=== PATIENT | male | born 1990 | race Caucasian/White ===

== ENCOUNTER 2016-04-25 16:52 | Emergency (ER) | payer OTHER ==
--- NOTE | 2016-04-25 17:39 | EDDOCDS ---
Nurse's Notes [facility] Name: Aniceto Stratton Age: 25 yrs Sex: Male : 1990 Arrival Date: 04/25/2016 Time: 16:52 Bed TR7 Private MD: No Pcp Diagnosis: Acute serous otitis media, right ear;Acute pharyngitis;Dental caries-Tooth Fracture, Right side, upper and lower Presentation: 04/25 17:02 Presenting complaint: Patient states: states sore throat and right jaw pain x 1 year, ml6 states "I think it's cancer". Risk factors: Stridor is not present. Drooling is not present. Shortness of breath is not present. Cellulitis is not present. Adult Sepsis Screening: The patient does not have new or worsening altered mentation. Patient's respiratory rate is less than 22. Systolic blood pressure is greater than 100. Patient has a qSOFA score of 0- Negative Sepsis Screen. Suicide/Homicide risk assessment- the patient denies having any suicidal and/or homicidal ideations and does not present with any other emotional, behavioral or mental health complaints. 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 Transition of care: patient was not received from another setting of care. 17:02 Acuity: LIZETH Level 5 ml6 17:02 Method Of Arrival: Walkin/Carried/Asstd ml6 Triage Assessment: 17:04 General: Appears in no apparent distress, Behavior is appropriate for age, cooperative. ml6 Pain: Location: mouth and neck Pain currently is 5 out of 10 on a pain scale. Pain does not radiate. Quality of pain is described as aching, Pain began years ago. Is continuous Alleviated by nothing. Aggravated by eating, drinking. HIV screening NA for this visit Offered previously. EENT: Throat is clear. Cardiovascular: No deficits noted. Historical: - Allergies: no known allergies; - Home Meds: 1. none - PMHx: none; - PSHx: none; - Social history: Smoking status: Chewing Tobacco No barriers to communication noted, Speaks appropriately for age. - Family history: Not pertinent. - : The pt / caregiver states he / she is not on anticoagulants. Home medication list is obtained from the patient. - Exposure Risk Screening:: None identified. Screenin:17 Screening information is obtained from the patient. Fall risk: No risks identified. js13 Assistance ADL's: requires no assistance with activities of daily living. Abuse/DV Screen: The patient / caregiver reports he/she is: not in a situation that causes fear, pain or injury. Nutritional screening: No deficits noted. Advance Directives: There is no active DNR order. home support is adequate. Assessment: 17:36 Respiratory: Airway is patent. js13 Vital Signs: 16:53 BP 183 / 90; Pulse 111; Resp 18; Temp 97.4(T); Pulse Ox 99% on R/A; Weight 72.57 kg dem1 (R); Height 5 ft. 7 in. (170.18 cm) (R); Pain 7/10; 17:33 BP 147 / 82; Temp 99.0(O); ar3 16:53 Body Mass Index 25.06 (72.57 kg, 170.18 cm) dem1 Vitals: 16:53 Log In Time: April 25, 2016 at 16:45. dem1 17:17 Strep Screen is obtained and tested: Negative, a GATSNEG culture is ordered in [facility] and sent. ED Course: 16:53 Patient visited by Aisha Baldwin. dem1 16:53 No Pcp is Private Physician. dem1 16:53 Patient moved to Waiting dem1 16:54 Patient visited by Aisha Baldwin. dem1 16:54 Patient moved to Pre RCE dem1 17:03 Triage Initiated ml6 17:04 Patient moved to Triage 1 ml6 17:17 The patient / caregiver is instructed regarding the plan of care and ED course. js13 17:17 No IV's were initiated during this patient's visit. No procedures done that require [facility] assistance. 17:18 Nah[facility] Damian [facility]C [facility]. ef1 17:18 Massiel Linda MD is Attending Physician. ef1 17:18 Patient visited by Nahomy Damian PA-C. ef1 17:22 GATS (NEGATIVE STREP SCREEN) Sent. ar3 17:34 Patient visited by Evette Mireles PCA. ar3 17:35 [facility] is Referral Physician. ef1 17:35 Your, Dentist is Referral Physician. ef1 17:38 Patient moved to TR7 ar3 Order Results: There are currently no results for this order. Outcome: 17:35 Discharge ordered by Provider. ef1 17:35 Discharge Assessment: Patient awake, alert and oriented x 3. No cognitive and/or js13 functional deficits noted. Patient verbalized understanding of disposition instructions. patient administered narcotics - no. The following High Risk Discharge criteria are identified: None. Discharged to home ambulatory. Condition: stable. No special radiology studies were completed. Property :Personal belongings accompany Pt. 17:36 Discharge instructions given to patient, Instructed on discharge instructions, follow js13 up and referral plans. medication usage, Demonstrated understanding of instructions, medications, Pt was receptive of discharge instructions/ teaching. Prescriptions given X 3. 17:38 Patient left the ED. js13 Signatures: Nahomy Damian, PAPaulaC PAPaulaC ef1 Shaheed Baltazar, RN RN ml6 Evette Mireles, COOK RAILROAD COOK RAILROAD ar3 Aisha Baldwin1 Marguerite Nuñez,RN RN js13 Corrections: (The following items were deleted from the chart) 17:03 17:02 Presenting complaint: Patient states: states sore throat and right jaw pain x 1 ml6 year ml6 MTDD
--- NOTE | 2016-04-25 17:39 | EDDOCDS ---
Physician Documentation [facility] Name: Aniceto Stratton Age: 25 yrs Sex: Male : 1990 Arrival Date: 04/25/2016 Time: 16:52 Bed TR7 Private MD: No Pcp Disposition: 04/25/16 17:35 Discharged to Home/Self Care. Impression: Acute serous otitis media, right ear, Acute pharyngitis, Dental caries - Tooth Fracture, Right side, upper and lower. - Condition is Stable. - Discharge Instructions: Dental Fracture, Otitis Media, Adult, Zgle-go-Hvne. - Prescriptions for Amoxicillin 875 mg Oral Tablet - take 1 tablet by ORAL route every 12 hours for 10 days; 20 tablet. Ibuprofen 800 mg Oral Tablet - take 1 tablet by ORAL route every 8 hours As needed take with food; 30 tablet. Mucinex 600 mg - take 1 tablet by ORAL route 2 times per day; 30 tablet. - Referral List Call for Appointment, Dental Referral List, Medication Reconciliation, Local Pharmacy Hours form. - [facility]: [facility] ; When: 1 - 2 days; Reason: Recheck today's complaints, Continuance of care. Follow up: Emergency Department; Reason: Worsening of conditions. Follow up: Dentist Your; When: 1 - 2 days; Reason: Further diagnostic work-up, Recheck today's complaints, Continuance of care. - Problem is new. - Symptoms are unchanged. Historical: - Allergies: no known allergies; - Home Meds: 1. none - PMHx: none; - PSHx: none; - Social history: Smoking status: Chewing Tobacco No barriers to communication noted, Speaks appropriately for age. - Family history: Not pertinent. - : The pt / caregiver states he / she is not on anticoagulants. Home medication list is obtained from the patient. - Exposure Risk Screening:: None identified. Vital Signs: 04/25 16:53 BP 183 / 90; Pulse 111; Resp 18; Temp 97.4(T); Pulse Ox 99% on R/A; Weight 72.57 kg / dem1 159.99 lbs (R); Height 5 ft. 7 in. (170.18 cm) (R); Pain 7/10; 17:33 BP 147 / 82; Temp 99.0(O); ar3 16:53 Body Mass Index 25.06 (72.57 kg, 170.18 cm) dem1 MDM: 17:16 Strep Screen, Nursing ordered. js13 17:17 GATS (NEGATIVE STREP SCREEN) Ordered. EDMS 17:23 Misc. Nursing Order ordered. ef1 Signatures: Dispatcher MedHost Nahomy Dueñas, AQUILINO ROLLE ef1 Shaheed Baltazar, RN RN ml6 Marguerite NuñezRN RN js13 MTDD
--- NOTE | 2016-04-27 18:39 | EDDOCDS ---
Physician Documentation [facility] Name: Aniceto Stratton Age: 25 yrs Sex: Male : 1990 Arrival Date: 04/25/2016 Time: 16:52 Bed TR7 Private MD: No Pcp Disposition: 04/25/16 17:35 Discharged to Home/Self Care. Impression: Acute serous otitis media, right ear, Acute pharyngitis, Dental caries - Tooth Fracture, Right side, upper and lower. - Condition is Stable. - Discharge Instructions: Dental Fracture, Otitis Media, Adult, [id number]. - Prescriptions for Amoxicillin 875 mg Oral Tablet - take 1 tablet by ORAL route every 12 hours for 10 days; 20 tablet. Ibuprofen 800 mg Oral Tablet - take 1 tablet by ORAL route every 8 hours As needed take with food; 30 tablet. Mucinex 600 mg - take 1 tablet by ORAL route 2 times per day; 30 tablet. - Referral List Call for Appointment, Dental Referral List, Medication Reconciliation, Local Pharmacy Hours form. - Follow up: [facility] ; When: 1 - 2 days; Reason: Recheck today's complaints, Continuance of care. Follow up: Emergency Department; Reason: Worsening of conditions. Follow up: Dentist Your; When: 1 - 2 days; Reason: Further diagnostic work-up, Recheck today's complaints, Continuance of care. - Problem is new. - Symptoms are unchanged. Historical: - Allergies: no known allergies; - Home Meds: 1. none - PMHx: none; - PSHx: none; - Social history: Smoking status: Chewing Tobacco No barriers to communication noted, Speaks appropriately for age. - Family history: Not pertinent. - : The pt / caregiver states he / she is not on anticoagulants. Home medication list is obtained from the patient. - Exposure Risk Screening:: None identified. Vital Signs: 04/25 16:53 BP 183 / 90; Pulse 111; Resp 18; Temp 97.4(T); Pulse Ox 99% on R/A; Weight 72.57 kg / dem1 159.99 lbs (R); Height 5 ft. 7 in. (170.18 cm) (R); Pain 7/10; 17:33 BP 147 / 82; Temp 99.0(O); ar3 16:53 Body Mass Index 25.06 (72.57 kg, 170.18 cm) dem1 MDM: 17:16 Strep Screen, Nursing ordered. js13 17:17 GATS (NEGATIVE STREP SCREEN) Ordered. EDMS 17:23 Misc. Nursing Order ordered. ef1 18:00 [facility] Payment Agreement was scanned into MEDDigital Ally and attached to record. gjb 18:00 Financial registration complete. gjb 04/26 11:59 T-Sheet-- Draft Copy was scanned into [employer] and attached to record. gb Signatures: Dispatcher MedHost EDMS Aurora Cervantes, Reg Reg gb Nahomy Damian, PA-C PAPaulaC ef1 Shaheed Baltazar, RN RN ml6 Marguerite NuñezRN RN js13 Dana Carter The chart was reviewed and I authenticate all verbal orders and agree with the evaluation and treatment provided.Attachments: 04/25 18:00 [place] [place] gjb 04/26 11:59 T-Sheet-- Draft Copy gb Chart Complete MTDD
--- NOTE | 2016-04-27 18:39 | EDDOCDS ---
Nurse's Notes [facility] Name: Aniceto Stratton Age: 25 yrs Sex: Male : 1990 Arrival Date: 04/25/2016 Time: 16:52 Bed TR7 Private MD: No Pcp Diagnosis: Acute serous otitis media, right ear;Acute pharyngitis;Dental caries-Tooth Fracture, Right side, upper and lower Presentation: 04/25 17:02 Presenting complaint: Patient states: states sore throat and right jaw pain x 1 year, ml6 states "I think it's cancer". Risk factors: Stridor is not present. Drooling is not present. Shortness of breath is not present. Cellulitis is not present. Adult Sepsis Screening: The patient does not have new or worsening altered mentation. Patient's respiratory rate is less than 22. Systolic blood pressure is greater than 100. Patient has a qSOFA score of 0- Negative Sepsis Screen. Suicide/Homicide risk assessment- the patient denies having any suicidal and/or homicidal ideations and does not present with any other emotional, behavioral or mental health complaints. 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 Transition of care: patient was not received from another setting of care. 17:02 Acuity: LIZETH Level 5 ml6 17:02 Method Of Arrival: Walkin/Carried/Asstd ml6 Triage Assessment: 17:04 General: Appears in no apparent distress, Behavior is appropriate for age, cooperative. ml6 Pain: Location: mouth and neck Pain currently is 5 out of 10 on a pain scale. Pain does not radiate. Quality of pain is described as aching, Pain began years ago. Is continuous Alleviated by nothing. Aggravated by eating, drinking. HIV screening NA for this visit Offered previously. EENT: Throat is clear. Cardiovascular: No deficits noted. Historical: - Allergies: no known allergies; - Home Meds: 1. none - PMHx: none; - PSHx: none; - Social history: Smoking status: Chewing Tobacco No barriers to communication noted, Speaks appropriately for age. - Family history: Not pertinent. - : The pt / caregiver states he / she is not on anticoagulants. Home medication list is obtained from the patient. - Exposure Risk Screening:: None identified. Screenin:17 Screening information is obtained from the patient. Fall risk: No risks identified. js13 Assistance ADL's: requires no assistance with activities of daily living. Abuse/DV Screen: The patient / caregiver reports he/she is: not in a situation that causes fear, pain or injury. Nutritional screening: No deficits noted. Advance Directives: There is no active DNR order. home support is adequate. Assessment: 17:36 Respiratory: Airway is patent. js13 Vital Signs: 16:53 BP 183 / 90; Pulse 111; Resp 18; Temp 97.4(T); Pulse Ox 99% on R/A; Weight 72.57 kg dem1 (R); Height 5 ft. 7 in. (170.18 cm) (R); Pain 7/10; 17:33 BP 147 / 82; Temp 99.0(O); ar3 16:53 Body Mass Index 25.06 (72.57 kg, 170.18 cm) dem1 Vitals: 16:53 Log In Time: April 25, 2016 at 16:45. dem1 17:17 Strep Screen is obtained and tested: Negative, a GATSNEG culture is ordered in [place] [address] and sent. ED Course: 16:53 Patient visited by Aisha Baldwin. dem1 16:53 No Pcp is Private Physician. dem1 16:53 Patient moved to Waiting dem1 16:54 Patient visited by Aisha Baldwin. dem1 16:54 Patient moved to Pre RCE dem1 17:03 Triage Initiated ml6 17:04 Patient moved to Triage 1 ml6 17:17 The patient / caregiver is instructed regarding the plan of care and ED course. js13 17:17 No IV's were initiated during this patient's visit. No procedures done that require [facility] assistance. 17:18 Nahomy Damian [facility]-C [facility]. ef1 17:18 Massiel Linda MD is Attending Physician. ef1 17:18 Patient visited by Nahomy Damian PA-C. ef1 17:22 GATS (NEGATIVE STREP SCREEN) Sent. ar3 17:34 Patient visited by Evette Mireles PCA. ar3 17:35 [facility] is Referral Physician. ef1 17:35 Your, Dentist is Referral Physician. ef1 17:38 Patient moved to [facility] ar3 18:[facility] Payment Agreement was scanned into V[employer]et and attached to record. gjb 04/26 11:59 T-Sheet-- Draft Copy was scanned into V[employer]et and attached to record. gb Order Results: Lab Order: GATS (NEGATIVE STREP SCREEN); SPEC'M 04/25/16 17:23 Test: GATS CULTURE (NEG STREP SCR); Value: GATS RESULT POSITIVE FOR STREP PYOGENES (GROUP A); Abnormal: Abnormal; Status: F Test: GATS CULTURE (NEG STREP SCR); Value: <EXTERNAL COMMENT eCWMed> FULL REPORT IN LAB NOTES (eCW and Medent).; Status: F Test: GATS CULTURE (NEG STREP SCR); Value: ORGANISM 1: STREPTOCOCCUS PYOGENES GRP A; Status: F Test: GATS CULTURE (NEG STREP SCR); Value: STREPTOCOCCUS PYOGENES GRP A; Status: F Test: GATS CULTURE (NEG STREP SCR); Value: QUANTITY OF GROWTH FEW; Status: F Outcome: 04/25 17:35 Discharge ordered by Provider. ef1 17:35 Discharge Assessment: Patient awake, alert and oriented x 3. No cognitive and/or js13 functional deficits noted. Patient verbalized understanding of disposition instructions. patient administered narcotics - no. The following High Risk Discharge criteria are identified: None. Discharged to home ambulatory. Condition: stable. No special radiology studies were completed. Property :Personal belongings accompany Pt. 17:36 Discharge instructions given to patient, Instructed on discharge instructions, follow js13 up and referral plans. medication usage, Demonstrated understanding of instructions, medications, Pt was receptive of discharge instructions/ teaching. Prescriptions given X 3. 17:38 Patient left the ED. js13 04/27 12:10 GATS reviewed, pt treated appropriately.:. [facility] Signatures: Nicole Coleman, RN RN j Aurora Cervantes, Reg Reg gb Feola, Nahomy, PA-C PA-C ef1 Shaheed Baltazar, RN RN ml6 Evette Mireles, CLEAN RICE BROKER CLEAN RICE BROKER ar3 Aisha Baldwin1 Marguerite Nuñez RN RN js13 Dana Carter Corrections: (The following items were deleted from the chart) 04/25 17:03 17:02 Presenting complaint: Patient states: states sore throat and right jaw pain x 1 ml6 year ml6 Chart Complete MTDD
--- NOTE | 2016-04-27 18:39 | EDDOCDS ---
Physician Documentation [facility] Name: Aniceto Stratton Age: 25 yrs Sex: Male : 1990 Arrival Date: 04/25/2016 Time: 16:52 Bed TR7 Private MD: No Pcp Disposition: 04/25/16 17:35 Discharged to Home/Self Care. Impression: Acute serous otitis media, right ear, Acute pharyngitis, Dental caries - Tooth Fracture, Right side, upper and lower. - Condition is Stable. - Discharge Instructions: Dental Fracture, Otitis Media, Adult, Yxkq-cq-[id number]. - Prescriptions for Amoxicillin 875 mg Oral Tablet - take 1 tablet by ORAL route every 12 hours for 10 days; 20 tablet. Ibuprofen 800 mg Oral Tablet - take 1 tablet by ORAL route every 8 hours As needed take with food; 30 tablet. Mucinex 600 mg - take 1 tablet by ORAL route 2 times per day; 30 tablet. - Referral List Call for Appointment, Dental Referral List, Medication Reconciliation, Local Pharmacy Hours form. - Follow up: [facility] ; When: 1 - 2 days; Reason: Recheck today's complaints, Continuance of care. Follow up: Emergency Department; Reason: Worsening of conditions. Follow up: Dentist Your; When: 1 - 2 days; Reason: Further diagnostic work-up, Recheck today's complaints, Continuance of care. - Problem is new. - Symptoms are unchanged. Historical: - Allergies: no known allergies; - Home Meds: 1. none - PMHx: none; - PSHx: none; - Social history: Smoking status: Chewing Tobacco No barriers to communication noted, Speaks appropriately for age. - Family history: Not pertinent. - : The pt / caregiver states he / she is not on anticoagulants. Home medication list is obtained from the patient. - Exposure Risk Screening:: None identified. Vital Signs: 04/25 16:53 BP 183 / 90; Pulse 111; Resp 18; Temp 97.4(T); Pulse Ox 99% on R/A; Weight 72.57 kg / dem1 159.99 lbs (R); Height 5 ft. 7 in. (170.18 cm) (R); Pain 7/10; 17:33 BP 147 / 82; Temp 99.0(O); ar3 16:53 Body Mass Index 25.06 (72.57 kg, 170.18 cm) dem1 MDM: 17:16 Strep Screen, Nursing ordered. js13 17:17 GATS (NEGATIVE STREP SCREEN) Ordered. EDMS 17:23 Misc. Nursing Order ordered. ef1 18:00 [facility] Payment Agreement was scanned into MEDSample6 and attached to record. gjb 18:00 Financial registration complete. gjb 04/26 11:59 T-Sheet-- Draft Copy was scanned into SprayCool and attached to record. gb Signatures: Dispatcher MedHost EDMS Aurora Cervantes, Reg Reg gb Nahomy Damian, PA-C PAPaulaC ef1 Shaheed Baltazar, RN RN ml6 Marguerite NuñezRN RN js13 Dana Carter The chart was reviewed and I authenticate all verbal orders and agree with the evaluation and treatment provided.Attachments: 04/25 18:00 [facility] Payment Agreement gjb 04/26 11:59 T-Sheet-- Draft Copy gb Chart Complete MTDD
== END 2016-04-25 17:38 | disposition home or self-care (01) ==
LOC: M ED 16:52
DX: S02.5XXA Fracture of tooth (traumatic), initial encounter for closed fracture (principal); X58.XXXA Exposure to other specified factors, initial encounter; Y92.9 Unspecified place or not applicable; Y93.9 Activity, unspecified; Y99.9 Unspecified external cause status; K02.9 Dental caries, unspecified; H66.91 Otitis media, unspecified, right ear; J02.9 Acute pharyngitis, unspecified; F17.228 Nicotine dependence, chewing tobacco, with other nicotine-induced disorders

== ENCOUNTER 2016-08-15 20:42 | Emergency (ER) | payer OTHER ==
[~2016-08-15] VITALS: Ht 170.2 cm; Wt 77.1 kg
[2016-08-15 21:27] LABS: ANION GAP 5 MEQ/L (8-16); BLOOD UREA NITROGEN 13 MG/DL (7-18); CARBON DIOXIDE LEVEL 31 MEQ/L (21-32); CHLORIDE LEVEL 105 MEQ/L (98-107); CREATININE FOR GFR 0.89 MG/DL (0.70-1.30); GLOMERULAR FILTRATION RATE > 60.0 (>60); GLUCOSE, FASTING 69 MG/DL (70-105); MAGNESIUM LEVEL 2.3 MG/DL (1.8-2.4); SODIUM LEVEL 141 MEQ/L (136-145)
[2016-08-15 21:55] LABS: METHADONE URINE NEGATIVE (NEGATIVE)
[2016-08-15 22:05] VITALS: BP 155/87
--- NOTE | 2016-08-16 07:33 | ECGEPIP ---
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
== END 2016-08-15 22:14 | disposition home or self-care (01) ==
LOC: EDBD 20:42 → M ED 21:32
DX: F14.10 Cocaine abuse, uncomplicated (principal); F12.10 Cannabis abuse, uncomplicated; R00.1 Bradycardia, unspecified; K21.9 Gastro-esophageal reflux disease without esophagitis; J45.909 Unspecified asthma, uncomplicated

== ENCOUNTER 2016-08-30 22:38 | Emergency (ER) | payer OTHER ==
[~2016-08-30] VITALS: Ht 170.2 cm; Wt 68.6 kg
[2016-08-30] MEDS ORDERED: SUBO12MI SL (22:48)
[2016-08-31 00:18] VITALS: BP 145/84
--- NOTE | 2016-08-31 16:23 | ECGEPIP ---
Stationary ECG Study [facility] - ED Test Date: 2016-08-30 Pat Name: EVELIA JACK Department: Room: - Gender: M Federal Mediator: : 1990 Requested By: GARY Fernández Order Number: [id number] Reading MD: Soledad Melchor Measurements Intervals [place] Rate: 49 P: 74 [place]: 149 QRS: 71 QRSD: 105 T: 57 QT: 428 QTc: 388 Interpretive Statements SINUS BRADYCARDIA DECREASED RATE 08/15/16 Electronically Signed On 08-31-2016 16:23:36 EDT by Soledad Melchor
== END 2016-08-31 00:19 | disposition home or self-care (01) ==
LOC: M ED 23:43
DX: F41.9 Anxiety disorder, unspecified (principal); F32.9 Major depressive disorder, single episode, unspecified; J45.909 Unspecified asthma, uncomplicated; Z87.891 Personal history of nicotine dependence; Z79.891 Long term (current) use of opiate analgesic

== ENCOUNTER 2017-05-05 14:52 | Emergency (ER) | payer OTHER ==
[2017-05-05 15:33] LABS: HEMATOCRIT 40.6 % (42.0-52.0); HEMOGLOBIN 14.6 g/dl (14.0-18.0); MEAN CORPUSCULAR HEMOGLOBIN 30.9 pg (27.0-33.0); MEAN CORPUSCULAR VOLUME 85.8 fl (80.0-96.0); PLATELET COUNT, AUTOMATED 199 10^3/uL (150-450); RED BLOOD COUNT 4.73 10^6/uL (4.30-6.10); RED CELL DISTRIBUTION WIDTH 11.9 % (11.5-14.5); WHITE BLOOD COUNT 13.8 10^3/uL (4.0-10.0)
[2017-05-05 15:45] LABS: INR 1.04; PROTHROMBIN TIME 13.7 SECONDS (12.4-14.5)
[2017-05-05 16:17] LABS: ALBUMIN 3.8 GM/DL (3.2-5.2); ALBUMIN/GLOBULIN RATIO 1.15 (1.00-1.93); ALKALINE PHOSPHATASE 77 U/L (45-117); ALT/SGPT 44 U/L (12-78); ANION GAP 8 MEQ/L (8-16); AST/SGOT 42 U/L (7-37); BILIRUBIN,DIRECT 0.1 MG/DL (0.0-0.2); BILIRUBIN,TOTAL 0.4 MG/DL (0.2-1.0); BLOOD UREA NITROGEN 10 MG/DL (7-18); CALCIUM LEVEL 8.6 MG/DL (8.5-10.1); CARBON DIOXIDE LEVEL 28 MEQ/L (21-32); CHLORIDE LEVEL 105 MEQ/L (98-107); CREATININE FOR GFR 0.75 MG/DL (0.70-1.30); GLOMERULAR FILTRATION RATE > 60.0 (>60); GLUCOSE, FASTING 98 MG/DL (70-100); POTASSIUM SERUM 3.5 MEQ/L (3.5-5.1); SODIUM LEVEL 141 MEQ/L (136-145); TOTAL PROTEIN 7.1 GM/DL (6.4-8.2)
[2017-05-05] MEDS ORDERED: ISOVUE-370 76% 100ML VIAL (Q9967) As Ordered (16:19)
[2017-05-05] MEDS: PERCOCET 5MG/325MG TAB PO (17:02)
== END 2017-05-05 17:24 | disposition home or self-care (01) ==
LOC: M ED 14:52
DX: S32.039A Unspecified fracture of third lumbar vertebra, initial encounter for closed fracture (principal); S20.219A Contusion of unspecified front wall of thorax, initial encounter; S30.1XXA Contusion of abdominal wall, initial encounter; S00.93XA Contusion of unspecified part of head, initial encounter; S50.01XA Contusion of right elbow, initial encounter; W13.2XXA Fall from, out of or through roof, initial encounter; Y92.9 Unspecified place or not applicable; Y93.9 Activity, unspecified
CPT/HCPCS: Q9967

== ENCOUNTER → 2019-04-29 | Outpatient (REF) | payer OTHER ==
[~2019-04-29] MED LIST: HYDR-3715 PO; SUBO12MI SL
== END ==
LOC: M LAB REF 09:34
PROVIDERS: ATTEND Physician Assistant
DX: J02.9 Acute pharyngitis, unspecified (principal)

== ENCOUNTER 2019-06-06 17:22 | Emergency (ER) | payer OTHER ==
[~2019-06-06] VITALS: Ht 170.2 cm; Wt 72.7 kg
[2019-06-06] MEDS ORDERED: SUBO8MIS SL (17:36)
[2019-06-06] MEDS ORDERED: HYDR12CA PO (17:44)
[2019-06-06] MEDS ORDERED: holter monitor (17:45)
[2019-06-06 18:08] LABS: BASO # 0.1 10^3/uL (0.0-0.2); EOS # 0.4 10^3/uL (0.0-0.5); HEMOGLOBIN 14.3 g/dl (13.5-17.5); LYMPH # 2.2 10^3/uL (1.5-5.0); LYMPH % 26.9 % (24.0-44.0); MEAN CORPUSCULAR HGB CONC 35.8 g/dl (32.0-36.5); MEAN CORPUSCULAR VOLUME 86.6 fl (80.0-96.0); MONO # 0.5 10^3/uL (0.0-0.8); MONO % 5.6 % (0.0-5.0); NEUTROPHILS # 5.1 10^3/uL (1.5-8.5); NEUTROPHILS % 61.1 % (36.0-66.0); PLATELET COUNT, AUTOMATED 186 10^3/uL (150-450); RED BLOOD COUNT 4.62 10^6/uL (4.30-6.10); WHITE BLOOD COUNT 8.3 10^3/uL (4.0-10.0)
[2019-06-06 18:43] LABS: BLOOD UREA NITROGEN 14 MG/DL (7-18); CALCIUM LEVEL 8.8 MG/DL (8.5-10.1); CARBON DIOXIDE LEVEL 29 MEQ/L (21-32); CHLORIDE LEVEL 106 MEQ/L (98-107); CREATININE FOR GFR 0.78 MG/DL (0.70-1.30); GLOMERULAR FILTRATION RATE > 60.0 (>60); GLUCOSE, FASTING 81 MG/DL (70-100); POTASSIUM SERUM 3.7 MEQ/L (3.5-5.1); SODIUM LEVEL 138 MEQ/L (136-145)
--- NOTE | 2019-06-06 19:04 | REP ---
CHEST, SINGLE VIEW: There is no evidence of acute infiltrate. No pleural effusion is seen. The heart is normal in size. The mediastinal silhouette is unremarkable. The visualized osseous structures are intact. IMPRESSION: No acute pulmonary disease. Electronically Signed by Aniceto Espinoza MD 06/06/2019 07:48 P
[2019-06-06 19:51] VITALS: BP 118/68
--- NOTE | 2019-06-07 18:40 | ECGEPIP ---
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
== END 2019-06-06 19:52 | disposition home or self-care (01) ==
LOC: M ED 17:22 → EDBD 17:22 → M ED 19:52
DX: I10 Essential (primary) hypertension (principal); R00.2 Palpitations; R00.1 Bradycardia, unspecified; I45.89 Other specified conduction disorders; J45.909 Unspecified asthma, uncomplicated; F41.9 Anxiety disorder, unspecified; F32.9 Major depressive disorder, single episode, unspecified; F17.220 Nicotine dependence, chewing tobacco, uncomplicated; Z91.14 Patient's other noncompliance with medication regimen

== ENCOUNTER → 2019-06-08 | Outpatient (CLI) | payer OTHER ==
[~2019-06-08] MED LIST changes: +HYDR12CA PO; +SUBO8MIS SL; +holter monitor
--- NOTE | 2019-06-09 16:10 | HOLTMON ---
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 Rare PACs. Rare PVCs. No episodes of SVT, wide complex tachycardia, high-grade AV block or sinus arrest. Bedtime 4:00 AM, awoke at 9 AM. Pt did not put nothing down as far as symptoms. Electronically Signed on 06-09-2019 16:09:49 EDT by Farrukh Monroe
== END ==
LOC: M EKG 11:51
PROVIDERS: ATTEND Emergency Medicine
DX: R00.1 Bradycardia, unspecified (principal); I49.1 Atrial premature depolarization; I49.3 Ventricular premature depolarization

== ENCOUNTER 2019-08-07 16:10 | Emergency (ER) | payer OTHER ==
[~2019-08-07] VITALS: Ht 170.2 cm; Wt 72.7 kg
[2019-08-07] MEDS ORDERED: FISH1000 PO (16:32)
[2019-08-07] MEDS ORDERED: KP BTAB PO (16:32)
[2019-08-07] MEDS ORDERED: CINN500C2 PO (16:32)
[2019-08-07] MEDS ORDERED: OSTE1TAB2 PO (16:32)
[2019-08-07 16:57] LABS: BASO # 0.1 10^3/uL (0.0-0.2); BASO % 0.4 % (0.0-1.0); EOS % 0.2 % (0.0-3.0); HEMATOCRIT 41.2 % (42.0-52.0); HEMOGLOBIN 14.6 g/dl (13.5-17.5); LYMPH # 1.2 10^3/uL (1.5-5.0); LYMPH % 7.4 % (24.0-44.0); MEAN CORPUSCULAR HEMOGLOBIN 30.9 pg (27.0-33.0); MEAN CORPUSCULAR HGB CONC 35.4 g/dl (32.0-36.5); MEAN CORPUSCULAR VOLUME 87.3 fl (80.0-96.0); MONO # 0.8 10^3/uL (0.0-0.8); MONO % 4.9 % (0.0-5.0); NEUTROPHILS # 13.9 10^3/uL (1.5-8.5); NEUTROPHILS % 86.5 % (36.0-66.0); PLATELET COUNT, AUTOMATED 195 10^3/uL (150-450); RED BLOOD COUNT 4.72 10^6/uL (4.30-6.10)
[2019-08-07] MEDS: ONDANSETRON 4 MG ORAL DISINTEGRATING TAB PO ONE (17:14)
[2019-08-07] MEDS: KETOROLAC TROMETHAMINE 10 MG TAB PO ONE (17:14)
[2019-08-07 17:19] LABS: ALT/SGPT 37 U/L (12-78); BILIRUBIN,DIRECT 0.1 MG/DL (0.0-0.2); BILIRUBIN,TOTAL 0.6 MG/DL (0.2-1.0); BLOOD UREA NITROGEN 14 MG/DL (7-18); CALCIUM LEVEL 8.8 MG/DL (8.5-10.1); CARBON DIOXIDE LEVEL 30 MEQ/L (21-32); CHLORIDE LEVEL 104 MEQ/L (98-107); CREATININE FOR GFR 0.78 MG/DL (0.70-1.30); GLOMERULAR FILTRATION RATE > 60.0 (>60); GLUCOSE, FASTING 82 MG/DL (70-100); LIPASE 59 U/L (73-393); POTASSIUM SERUM 3.7 MEQ/L (3.5-5.1); SODIUM LEVEL 139 MEQ/L (136-145); TOTAL PROTEIN 7.6 GM/DL (6.4-8.2)
--- NOTE | 2019-08-07 17:46 | REP ---
Clinical: Generalized abdominal pain. Technique: Single supine view of the abdomen and pelvis. Findings: Bowel gas pattern is nonspecific. No obvious organomegaly. No significant abnormal calcifications or foreign body. Incidental phleboliths suggested in the pelvis. Skeletal structures are intact. Impression: Nonspecific abdominal radiograph. Electronically Signed by Yang Turner MD 08/07/2019 05:38 P
[2019-08-07 18:49] VITALS: BP 130/68
[2019-08-07] MEDS ORDERED: AUGM875T28 PO (18:54)
[2019-08-07] MEDS ORDERED: KETO10TAB PO (18:54)
[2019-08-07] MEDS ORDERED: ONDA4TAB6 PO (18:54)
[2019-08-07] MEDS ORDERED: COLA100C5 PO (18:55)
[2019-08-07] MEDS ORDERED: MIRA3350 PO (18:55)
== END 2019-08-07 19:03 | disposition home or self-care (01) ==
LOC: M ED 16:10 → EDBD 16:10 → M ED 19:03
DX: K52.9 Noninfective gastroenteritis and colitis, unspecified (principal); K59.00 Constipation, unspecified; R11.0 Nausea; I10 Essential (primary) hypertension; J45.909 Unspecified asthma, uncomplicated; F41.9 Anxiety disorder, unspecified; F32.9 Major depressive disorder, single episode, unspecified; K21.9 Gastro-esophageal reflux disease without esophagitis; Z79.891 Long term (current) use of opiate analgesic; F17.220 Nicotine dependence, chewing tobacco, uncomplicated
CPT/HCPCS: 36415; 74018; 80047; 80048; 80076; 81001; 83690; 85025; 87086; 87507; 99284; Q0162

== ENCOUNTER 2019-08-20 08:39 | Emergency (ER) | payer OTHER ==
[~2019-08-20] VITALS: Ht 170.2 cm; Wt 75.0 kg
[~2019-08-20 08:39] MED LIST changes: +AUGM875T28 PO; +CINN500C2 PO; +COLA100C5 PO; +FISH1000 PO; +KETO10TAB PO; +KP BTAB PO; +MIRA3350 PO; +ONDA4TAB6 PO; +OSTE1TAB2 PO
[2019-08-20 09:19] LABS: BASO # 0.1 10^3/uL (0.0-0.2); BASO % 1.1 % (0.0-1.0); EOS # 0.2 10^3/uL (0.0-0.5); HEMATOCRIT 43.5 % (42.0-52.0); HEMOGLOBIN 15.4 g/dl (13.5-17.5); MEAN CORPUSCULAR HEMOGLOBIN 31.2 pg (27.0-33.0); MEAN CORPUSCULAR HGB CONC 35.4 g/dl (32.0-36.5); MEAN CORPUSCULAR VOLUME 88.2 fl (80.0-96.0); MONO # 0.5 10^3/uL (0.0-0.8); MONO % 6.5 % (0.0-5.0); NEUTROPHILS # 4.2 10^3/uL (1.5-8.5); NEUTROPHILS % 60.1 % (36.0-66.0); PLATELET COUNT, AUTOMATED 176 10^3/uL (150-450); RED BLOOD COUNT 4.93 10^6/uL (4.30-6.10)
[2019-08-20 09:36] LABS: BLOOD UREA NITROGEN 13 MG/DL (7-18); CALCIUM LEVEL 8.9 MG/DL (8.5-10.1); CARBON DIOXIDE LEVEL 28 MEQ/L (21-32); CHLORIDE LEVEL 106 MEQ/L (98-107); CREATININE FOR GFR 0.81 MG/DL (0.70-1.30); GLOMERULAR FILTRATION RATE > 60.0 (>60); GLUCOSE, FASTING 106 MG/DL (70-100); POTASSIUM SERUM 3.5 MEQ/L (3.5-5.1); SODIUM LEVEL 139 MEQ/L (136-145)
[2019-08-20] MEDS ORDERED: GI COCKTAIL 50ML BTL(HYOSCYAMINE/MAALOX/LIDOCAINE VISCOUS)(1:3:1) PO ONE (10:30)
[2019-08-20 10:41] LABS: ALT/SGPT 46 U/L (12-78); BILIRUBIN,DIRECT 0.1 MG/DL (0.0-0.2); BILIRUBIN,TOTAL 0.4 MG/DL (0.2-1.0); TOTAL PROTEIN 7.6 GM/DL (6.4-8.2)
--- NOTE | 2019-08-20 11:18 | REP ---
REASON: Chest pain. FINDINGS: The technique utilized in obtaining the radiograph has magnified the cardiac silhouette and accentuated the interstitial markings. The superior mediastinal structures are midline. The cardiac silhouette is unremarkable in size, shape, and position. The diaphragmatic surfaces of the lungs are regular, and the costophrenic angles are clear. The pulmonary edmondson are clear. The imaged osseous structures are intact. IMPRESSION: There is no acute cardiopulmonary disease. Electronically Signed by Perez Martinez DO 08/20/2019 12:07 P
[2019-08-20 11:55] LABS: AMPHETAMINES LEVEL URINE NEGATIVE (NEGATIVE); BARBITURATES URINE NEGATIVE (NEGATIVE); BENZODIAZEPINES URINE NEGATIVE (NEGATIVE); CANNABINOIDS URINE NEGATIVE (NEGATIVE); COCAINE METABOLITE URINE NEGATIVE (NEGATIVE); METHADONE URINE NEGATIVE (NEGATIVE); OPIATES URINE NEGATIVE (NEGATIVE); PHENCYCLIDINE URINE NEGATIVE (NEGATIVE)
[2019-08-20 12:15] VITALS: BP 115/65
[2019-08-20] MEDS ORDERED: [UNRECOGNIZED DRUG - OTHER] (12:32)
--- NOTE | 2019-08-20 18:41 | ECGEPIP ---
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
== END 2019-08-20 12:41 | disposition home or self-care (01) ==
LOC: M ED 08:39
DX: R00.2 Palpitations (principal); I10 Essential (primary) hypertension; J45.909 Unspecified asthma, uncomplicated; F33.9 Major depressive disorder, recurrent, unspecified; F41.9 Anxiety disorder, unspecified; K21.9 Gastro-esophageal reflux disease without esophagitis; Z79.899 Other long term (current) drug therapy; Z79.891 Long term (current) use of opiate analgesic; F17.220 Nicotine dependence, chewing tobacco, uncomplicated

== ENCOUNTER 2019-09-30 23:21 | Emergency (ER) | payer OTHER ==
[~2019-09-30 23:21] MED LIST changes: +[UNRECOGNIZED DRUG - OTHER]
[2019-09-30] MEDS ORDERED: CLON0.5T2 PO (23:47)
[2019-10-01 00:56] VITALS: BP 138/70
== END 2019-10-01 00:57 | disposition home or self-care (01) ==
LOC: M ED 23:21
DX: F41.0 Panic disorder [episodic paroxysmal anxiety] (principal); F19.10 Other psychoactive substance abuse, uncomplicated; F41.1 Generalized anxiety disorder; Z79.899 Other long term (current) drug therapy

== ENCOUNTER 2020-08-27 18:42 | Emergency (ER) | payer OTHER ==
[~2020-08-27] VITALS: Ht 170.2 cm; Wt 72.3 kg
[~2020-08-27 18:42] MED LIST changes: +CLON0.5T2 PO
[2020-08-27 19:22] LABS: BASO # 0.1 10^3/uL (0.0-0.2); BASO % 1.2 % (0.0-1.0); EOS # 0.2 10^3/uL (0.0-0.5); EOS % 2.2 % (0.0-3.0); HEMATOCRIT 39.6 % (42.0-52.0); HEMOGLOBIN 13.8 g/dl (13.5-17.5); LYMPH # 2.2 10^3/uL (1.5-5.0); MEAN CORPUSCULAR HEMOGLOBIN 30.3 pg (27.0-33.0); MEAN CORPUSCULAR HGB CONC 34.8 g/dl (32.0-36.5); MONO # 0.6 10^3/uL (0.0-0.8); MONO % 7.9 % (2.0-8.0); NEUTROPHILS # 4.7 10^3/uL (1.5-8.5); NEUTROPHILS % 60.4 % (36.0-66.0); PLATELET COUNT, AUTOMATED 212 10^3/uL (150-450); RED BLOOD COUNT 4.55 10^6/uL (4.30-6.10); WHITE BLOOD COUNT 7.8 10^3/uL (4.0-10.0)
[2020-08-27] MEDS ORDERED: ASPIRIN 81 MG CHEW TABLET PO ONE (19:35)
[2020-08-27] MEDS ORDERED: NS 1,000 ML IV ONE (19:40)
[2020-08-27 19:56] LABS: CK-MB VALUE MASS 4.2 NG/ML (<3.6); CPK CREATINE PHOSPHOKINASE 288 U/L (39-308); MB/CK RELATIVE INDEX 1.46 (< OR =4); TROPONIN I < 0.02 NG/ML (< 0.10)
--- NOTE | 2020-08-27 20:16 | REP ---
INDICATION: CHEST PAIN. COMPARISON: None. TECHNIQUE: Portable FINDINGS: The technique utilized in obtaining the radiograph has magnified the cardiac silhouette and accentuated the interstitial markings. The superior mediastinal structures are midline. The cardiac silhouette is unremarkable in size, shape, and position. The diaphragmatic surfaces of the lungs are regular, and the costophrenic angles are clear. The pulmonary edmondson are clear. The imaged osseous structures are intact. IMPRESSION: There is no acute cardiopulmonary disease. <Electronically signed by Perez Martinez > 08/27/202011
[2020-08-27 20:30] VITALS: BP 135/87
--- NOTE | 2020-08-28 19:48 | ECGEPIP ---
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
== END 2020-08-27 20:45 | disposition home or self-care (01) ==
LOC: M ED 18:42
DX: R53.1 Weakness (principal); T67.5XXA Heat exhaustion, unspecified, initial encounter; Y92.89 Other specified places as the place of occurrence of the external cause; Y93.89 Activity, other specified; I10 Essential (primary) hypertension; K21.9 Gastro-esophageal reflux disease without esophagitis; Z79.899 Other long term (current) drug therapy

== ENCOUNTER 2022-07-15 14:03 | Emergency (ER) | payer OTHER ==
[~2022-07-15] VITALS: Ht 170.2 cm; Wt 67.0 kg
[2022-07-15] MEDS ORDERED: MED REC COMMENT (16:01)
[2022-07-15] MEDS ORDERED: HOME MED LIST COMPLETE! XX SCH (16:05)
[2022-07-15] MEDS ORDERED: SUBO8MIS SL (16:24)
[2022-07-15 16:49] VITALS: BP 149/94
== END 2022-07-15 16:51 | disposition home or self-care (01) ==
LOC: M ED 14:03
DX: F11.20 Opioid dependence, uncomplicated (principal)

== ENCOUNTER 2022-09-12 05:49 | Emergency (ER) | payer OTHER ==
[~2022-09-12] VITALS: Ht 177.8 cm; Wt 77.2 kg
[~2022-09-12 05:49] MED LIST changes: +MED REC COMMENT
[2022-09-12] MEDS ORDERED: NS 1,000 ML IV ONE (06:10)
[2022-09-12 06:24] LABS: BASO # 0.1 10^3/uL (0.0-0.2); BASO % 0.6 % (0.0-1.0); EOS # 0.2 10^3/uL (0.0-0.5); EOS % 2.4 % (0.0-3.0); HEMATOCRIT 41.8 % (42.0-52.0); HEMOGLOBIN 14.5 g/dl (13.5-17.5); LYMPH # 3.2 10^3/uL (1.5-5.0); LYMPH % 31.6 % (24.0-44.0); MEAN CORPUSCULAR HEMOGLOBIN 30.6 pg (27.0-33.0); MEAN CORPUSCULAR HGB CONC 34.7 g/dl (32.0-36.5); MEAN CORPUSCULAR VOLUME 88.2 fl (80.0-96.0); MONO # 0.9 10^3/uL (0.0-0.8); MONO % 9.3 % (2.0-8.0); NEUTROPHILS # 5.7 10^3/uL (1.5-8.5); NEUTROPHILS % 55.9 % (36.0-66.0); PLATELET COUNT, AUTOMATED 255 10^3/uL (150-450); RED BLOOD COUNT 4.74 10^6/uL (4.30-6.10); WHITE BLOOD COUNT 10.1 10^3/uL (4.0-10.0)
[2022-09-12 06:47] LABS: ETHYL ALCOHOL (ETHANOL) 0.007 % (0.000-0.010)
[2022-09-12 06:49] LABS: ACETAMINOPHEN LEVEL < 2.0 UG/ML (10.0-20.0); CPK CREATINE PHOSPHOKINASE 116 U/L (46-171); SALICYLATE LEVEL < 3.0 MG/DL (<30)
[2022-09-12 06:50] LABS: ALBUMIN 3.6 G/DL (3.2-5.2); ALKALINE PHOSPHATASE 92 U/L (46-116); ALT/SGPT 22 U/L (7.0-40); AST/SGOT 18 U/L (<34); BILIRUBIN,DIRECT 0.2 MG/DL (<0.4); BILIRUBIN,TOTAL 0.5 MG/DL (0.3-1.2); BLOOD UREA NITROGEN 10 MG/DL (9-23); CALCIUM LEVEL 8.8 MG/DL (8.5-10.1); CARBON DIOXIDE LEVEL 31 MMOL/L (20-31); CHLORIDE LEVEL 102 MMOL/L (98-107); CREATININE FOR GFR 0.89 MG/DL (0.70-1.30); GLOMERULAR FILTRATION RATE > 60.0 (>60); GLUCOSE, FASTING 101 MG/DL (60-100); POTASSIUM SERUM 4.1 MMOL/L (3.5-5.1); SODIUM LEVEL 137 MMOL/L (136-145); TOTAL PROTEIN 7.1 G/DL (5.7-8.2)
[2022-09-12 06:52] LABS: THYROID STIMULATING HORMONE 1.627 uIU/ML (0.55-4.78)
[2022-09-12 07:24] LABS: BARBITURATES URINE NEGATIVE (NEGATIVE); BENZODIAZEPINES URINE NEGATIVE (NEGATIVE); METHADONE URINE NEGATIVE (NEGATIVE); OPIATES URINE NEGATIVE (NEGATIVE); PHENCYCLIDINE URINE NEGATIVE (NEGATIVE)
[2022-09-12 07:25] LABS: CANNABINOIDS URINE NEGATIVE (NEGATIVE)
[2022-09-12 07:28] LABS: AMPHETAMINES LEVEL URINE POSITIVE (NEGATIVE); COCAINE METABOLITE URINE POSITIVE (NEGATIVE)
[2022-09-12] MEDS ORDERED: ALPRAZolam 0.5 MG TAB PO ONE (11:50)
[2022-09-12 12:27] VITALS: BP 138/90; TEMP 98.3; O2SAT 100
== END 2022-09-12 12:47 | disposition home or self-care (01) ==
LOC: M ED 05:49 → EDBD 05:49 → M ED 12:47
DX: F14.10 Cocaine abuse, uncomplicated (principal); F11.23 Opioid dependence with withdrawal; I10 Essential (primary) hypertension; J45.909 Unspecified asthma, uncomplicated; F32.A Depression, unspecified; F41.9 Anxiety disorder, unspecified; Z79.899 Other long term (current) drug therapy

== ENCOUNTER 2023-03-24 18:15 | Emergency (ER) | payer OTHER ==
[~2023-03-24] VITALS: Ht 170.2 cm; Wt 70.9 kg
[2023-03-24 18:52] VITALS: TEMP 98.1
[2023-03-25] MEDS ORDERED: ONDANSETRON 4MG ORAL DISINTEGRATING TAB PO ONE (03:20)
[2023-03-25 03:31] LABS: BASO # 0.1 10^3/uL (0.0-0.2); BASO % 0.7 % (0.0-1.0); EOS # 0.2 10^3/uL (0.0-0.5); EOS % 2.3 % (0.0-3.0); HEMATOCRIT 42.8 % (42.0-52.0); HEMOGLOBIN 15.1 g/dl (13.5-17.5); LYMPH # 2.7 10^3/uL (1.5-5.0); LYMPH % 27.8 % (24.0-44.0); MEAN CORPUSCULAR HEMOGLOBIN 31.8 pg (27.0-33.0); MEAN CORPUSCULAR HGB CONC 35.3 g/dl (32.0-36.5); MEAN CORPUSCULAR VOLUME 90.1 fl (80.0-96.0); MONO # 0.6 10^3/uL (0.0-0.8); MONO % 6.4 % (2.0-8.0); NEUTROPHILS # 6.1 10^3/uL (1.5-8.5); NEUTROPHILS % 62.5 % (36.0-66.0); PLATELET COUNT, AUTOMATED 214 10^3/uL (150-450); RED BLOOD COUNT 4.75 10^6/uL (4.30-6.10); WHITE BLOOD COUNT 9.8 10^3/uL (4.0-10.0)
[2023-03-25 03:44] LABS: LIPASE 23 U/L (12-53)
[2023-03-25 03:47] LABS: ALBUMIN 3.6 G/DL (3.2-5.2); ALKALINE PHOSPHATASE 76 U/L (46-116); ALT/SGPT 21 U/L (7.0-40); AST/SGOT 15 U/L (<34); BILIRUBIN,TOTAL 0.6 MG/DL (0.3-1.2); BLOOD UREA NITROGEN 11 MG/DL (9-23); CARBON DIOXIDE LEVEL 30 MMOL/L (20-31); CHLORIDE LEVEL 105 MMOL/L (98-107); CREATININE FOR GFR 0.65 MG/DL (0.70-1.30); GLOMERULAR FILTRATION RATE > 60.0 (>60); GLUCOSE, FASTING 88 MG/DL (60-100); POTASSIUM SERUM 3.8 MMOL/L (3.5-5.1); SODIUM LEVEL 138 MMOL/L (136-145); TOTAL PROTEIN 6.5 G/DL (5.7-8.2)
[2023-03-25 05:15] VITALS: BP 124/71; O2SAT 100
[2023-03-25] MEDS ORDERED: ONDA4TAB6 PO (05:23)
== END 2023-03-25 05:28 | disposition home or self-care (01) ==
LOC: M ED 18:15 → EDBD 18:15 → M ED 03-25 05:28
DX: R53.1 Weakness (principal); F19.10 Other psychoactive substance abuse, uncomplicated; R11.2 Nausea with vomiting, unspecified; Z11.52 Encounter for screening for COVID-19

== ENCOUNTER 2023-05-05 03:54 | Emergency (ER) | payer OTHER ==
[~2023-05-05] VITALS: Ht 170.2 cm; Wt 72.7 kg
[2023-05-05 04:12] VITALS: BP 154/100; TEMP 96.4; O2SAT 99
== END 2023-05-05 05:10 | disposition left against medical advice (07) ==
LOC: M ED 03:54 → EDBD 03:54 → M ED 05:10
DX: Z53.21 Procedure and treatment not carried out due to patient leaving prior to being seen by health care provider (principal)